=== PATIENT | male | born 1945 | race Caucasian/White ===

== ENCOUNTER 2018-08-18 08:29 | Day surgery (SDC) | payer MEDICARE, MEDICAID ==
[2015-03-18 13:04] VITALS: BMI 26.9
[2018-08-18 09:34] VITALS: TEMP 97.9
[2018-08-18] MEDS ORDERED: Propofol 10 mg/ml Inj (20 ML) ONE (10:52)
[2018-08-18] MEDS ORDERED: Etomidate 20 mg/10ml Inj IV ONE (10:52)
[2018-08-18] MEDS ORDERED: Sodium Chloride 0.9% 1,000 ML IV SCH (11:45)
[2018-08-18 12:48] VITALS: BP 125/84; PULSE 62; RESP 18; O2SAT 95
== END 2018-08-18 13:30 | disposition home or self-care (01) ==
LOC: ENDO 08:29
PROVIDERS: ATTEND Internal Medicine Gastroenterology
DX: K21.9 Gastro-esophageal reflux disease without esophagitis (principal); K26.9 Duodenal ulcer, unspecified as acute or chronic, without hemorrhage or perforation; K29.50 Unspecified chronic gastritis without bleeding; Z12.11 Encounter for screening for malignant neoplasm of colon; Z85.038 Personal history of other malignant neoplasm of large intestine; K57.30 Diverticulosis of large intestine without perforation or abscess without bleeding; K64.8 Other hemorrhoids; I10 Essential (primary) hypertension
CPT/HCPCS: 43239; 45378; 88305; 88312; 88342; J2001; J2704; J3010; J7030